=== PATIENT | male | born 1960 | race Two or more races ===

== ENCOUNTER 2016-09-05 09:57 | Emergency (ER) | payer OTHER ==
[~2016-09-05] VITALS: Wt 63.0 kg
[2016-09-05] MEDS ORDERED: ALBUTEROL 0.5% (NEB) 2.5 MG/0.5 ML AMP HHN STA (11:41)
--- NOTE | 2016-09-05 12:23 | RADRPT ---
PROCEDURE: Chest x-ray CLINICAL INDICATION: SOB. TECHNIQUE: One-view frontal. COMPARISON: None available FINDINGS: The cardiac silhouette is normal. No infiltrates are noted. No hilar abnormalities are identified. No pneumothorax or pleural effusions are visualized. IMPRESSION: 1. No active cardiopulmonary changes. RPTAT: HH .Jairo Nicole MD, MD Date Time Electronically viewed and signed by .Jairo Nicole MD, on 09/05/2016 12:22 .G/
[2016-09-05] MEDS ORDERED: ALBU18HF INHALATION (12:27)
[2016-09-05] MEDS ORDERED: PRED20TA PO (12:27)
[2016-09-05] MEDS ORDERED: AZIT250T94 PO (12:27)
--- NOTE | 2016-09-05 12:30 | ERD ---
ER Documentation Chief Complaint Date/Time DATE: 09/05/16 TIME: 12:29 Chief Complaint COUGH AND CONGESTION FOR THE PAST MONTH. NO RELEIF WITH MEDICATIONS HPI This 56-year-old male complains of productive cough last month. States taking promethazine at home. He has no measured fevers, chest pain, vomiting, abdominal pain. ROS All systems reviewed and are negative except as per history of present illness. Medications Home Meds Active Scripts Azithromycin* (Zithromax*) 250 Mg Tablet, 250 MG PO .ZPACK DIRECTED, #6 TAB TAKE 500 MG (2 TABS) THE FIRST DAY THEN 250 MG (1 TAB) DAYS 2-5 Prov:NORMAN WILD MD 09/05/16 Albuterol Sulfate* (Ventolin HFA*) 18 Gm Hfa.aer.ad, 2 PUFF INHALATION Q4H for 7 Days, #1 INHALER Prov:NORMAN WILD MD 09/05/16 Prednisone* (Prednisone*) 20 Mg Tab, 40 MG PO DAILY for 5 Days, TAB Prov:NORMAN WILD MD 09/05/16 PMhx/Soc Medical and Surgical Hx: pt denies Medical Hx, pt denies Surgical Hx Hx Alcohol Use: No Hx Substance Use: No Hx Tobacco Use: No Smoking Status: Never smoker Physical Exam Vitals Vital Signs Date Time Temp Pulse Resp B/P Pulse Ox O2 Delivery O2 Flow Rate FiO2 09/05/16 09:59 97.9 89 20 127/77 100 Physical Exam Const: [] Alert, not ill-appearing. Head: Atraumatic Eyes: Normal Conjunctiva ENT: Normal External Ears, Nose and Mouth. Neck: Full range of motion..~ No meningismus. Resp: Clear to auscultation bilaterally. No Rales. Increased expiratory phase. Patient has a wet cough. Cardio: Regular rate and rhythm, no murmurs Abd: Soft, non tender, non distended. Normal bowel sounds Skin: No petechiae or rashes Back: No midline or flank tenderness Ext: No cyanosis, or edema Neur: Awake and alert Psych: Normal Mood and Affect Results 24 hrs Current Medications Medications (Trade) Dose Ordered Sig/Lauren Route PRN Reason Start Time Stop Time Status Last Admin Dose Admin Albuterol (Proventil 0.5% (Neb)) 2.5 mg ONCE STAT HHN 09/05/16 11:41 09/05/16 11:43 DC 09/05/16 11:46 Procedures/MDM Chest X-ray 1V Interpreted by me: Soft Tissue: No acute abnormalities Bones: No acute abnormalities Mediastinum/Cardiac Silhouette/Lungs: [No acute abnormalities] impression normal 1 view chest x-ray Patient is given albuterol treatment times one. Patient presents with your symptoms worsening of last month with productive cough. His no signs or symptoms to suggest pulmonary embolism, acute cornea syndrome, pneumonia, rest or distress, acute abdomen. We treated with Zithromax, prednisone and Ventolin at home.The patient was stable with no new complaints during the ER course. Clinically, there is no current evidence to suggest meningitis, sepsis, acute abdomen, pneumonia, acute coronary syndrome, pulmonary embolism, or any other emergent condition appearing to require further evaluation or hospitalization. The patient should certainly return for any new or worsening symptoms per the aftercare instructions. They should otherwise follow-up with her primary care doctor for reevaluation this week. Departure Diagnosis: Primary Impression: URI, acute Condition: Stable Patient Instructions: Bronchitis With Wheezing (Adult) Additional Instructions: X-ray read as normal. Recheck for new or worsening symptoms or with primary care doctor. NORMAN WILD MD Sep 05, 2016 12:30
[2016-09-05 12:39] VITALS: BP 133/67; PULSE 88; RESP 18
== END 2016-09-05 12:41 | disposition home or self-care (01) ==
LOC: FTE 09:57
DX: J06.9 Acute upper respiratory infection, unspecified (principal)
CPT/HCPCS: 71010; 94664; Z7502; Z7610